=== PATIENT | female | born 1990 | race Caucasian/White ===

== ENCOUNTER 2021-06-10 11:23 | Observation (INO) | payer OTHER, SELFPAY ==
[2021-06-10] VITALS (8 sets, daily range): BP systolic 92–117; BP diastolic 42–71; PULSE 62–123; RESP 14–18; TEMP 36.3–37.6; O2SAT 99–100; BMI 25.0
--- NOTE | ~2021-06-10 | US_ITS ---
EXAMINATION: US OB <= 14 weeks fetus DATE: 06/11/2021 09:20 INDICATION: Threatened spontaneous . First trimester. TECHNIQUE: Real-time transabdominal pelvic ultrasound was performed. COMPARISON: None. FINDINGS: The uterus measures 10.1 x 8.0 x 7.2 cm. There is an intrauterine gestational sac. A yolk sac is iden tified. The crown rump length measures 5 mm, which correlates with an estimated gestational ag e of 6 weeks and 2 day(s) (+/-) 4 day(s). heart motion is identified measuring 115 beats per mi nute (bpm) by M-mode Doppler. There is a 1.5 x 1.4 x 2.4 cm cyst adjacent to the gestational sac, lik sheyla a subchorionic hematoma. The right ovary measures 2.9 x 2.5 x 2.5 cm. The left ovary measures 2.8 x 2.0 x 2.0 cm. There is no free fluid in the pelvis. IMPRESSION: 1. Single living intrauterine gestation with estimated date of delivery of 02/02/2022. 2. 1.5 x 1.4 x 2.4 cm cyst adjacent to the gestational sac, likely a small subchorionic hematoma. Reviewed, dictated and finalized at location B. IMPRESSION: 1. Single living intrauterine gestation with estimated date of delivery of 01/22. 2. 1.5 x 1.4 x 2.4 cm cyst adjacent to the gestational sac, likely a small sub chorionic hematoma.
[2021-06-10 11:59] LABS: Basophils Absolute Auto 0.1 K/mm3 (0.0-0.1); Basophils Percent Auto 0.4 % (0.2-1.2); Eosinophils Absolute Auto 0.1 K/mm3 (0-0.3); Eosinophils Percent Auto 0.5 % (0-4.4); Hematocrit 42.3 % (37.0-47.0); Hemoglobin 14.6 g/dL (12.0-15.0); Immature Granulocyte Absolute 0.04 K/mm3 (0.00-0.031); Immature Granulocyte Percent A 0.4 % (0-0.5); Lymphocytes Absolute Auto 1.38 K/mm3 (0.9-3.2); Lymphocytes Percent Auto 12.1 % (18.3-44.2); Mean Corpuscular HGB Conc 34.5 g/dl (32-36); Mean Corpuscular Hemoglobin 31.2 pg (26-34); Mean Corpuscular Volume 90.4 fl (80-100); Mean Platelet Volume 10.9 fl (7.4-10.4); Monocytes Absolute Auto 0.6 K/mm3 (0.1-0.6); Monocytes Percent Auto 4.8 % (2.6-8.5); Neutrophils Absolute Auto 9.3 K/mm3 (1.3-6.7); Neutrophils Percent Auto 81.8 % (45.5-73.1); Platelet Count Result 215 k/mm3 (150-375); Red Blood Count 4.68 M/mm3 (4.2-5.4); Red Cell Distribution Width 12.7 % (11.5-14.5); White Blood Count 11.4 K/mm3 (4.5-10.0)
[2021-06-10 12:09] LABS: Alanine Aminotransferase 17 U/L (4-35); Alkaline Phosphatase 54 U/L (38-126); Anion Gap 13 mmol/L (8-16); Aspartate Amino Transferase 25 U/L (14-36); Bilirubin,Total 0.8 mg/dL (0.2-1.3); Blood Urea Nitrogen 13 mg/dL (7-17); Calcium 9.9 mg/dL (8.4-10.2); Carbon Dioxide 22 mmol/L (22-30); Chloride 105 mmol/L (98-107); Estimated CRCL calculation 81 ml/min; Estimated Glomerular Filt Rate > 60; Glucose 99 mg/dL (65-110); Lipase 177 U/L (23-300); Potassium 4.2 mmol/L (3.4-5.0); Sodium 140 mmol/L (137-145)
[2021-06-10] MEDS: SODIUM CHLORIDE 0.9% IV 1,000 ML 999 ML IV CONT ×2 (12:09→16:23)
[2021-06-10] MEDS: METOCLOPRAMIDE HCL INJ 10 MG/2 ML VIAL IV PUSH (12:09)
--- NOTE | 2021-06-10 12:15 | PC.NURSE ---
Patient reports she has also had small amount of bleeding. Reports today when she received an ultrasound in OB office everything was good.
--- NOTE | 2021-06-10 12:24 | ED.GENADULT ---
HPI - General Adult General Chief complaint: Nausea/Vomiting/Diarrhea Stated complaint: N/V, 6 WKS Time Seen by Provider: 06/10/21 11:42 Source: patient and RN notes reviewed History of Present Illness HPI narrative: Patient is a 30 y/o female complaining of nausea and vomiting starting 1 week ago. She states that she is vomiting up food and liquid. There is no known alleviating or exacerbating factor. She has no abdominal pain or diarrhea. She states that she is approximately 6 week . She has some mild vaginal bleed. She states that she just came from Dr. Lee's office where she had ultrasound which showed she had some bleeding but positive heart tone. Related Data Home Medications Medication Instructions Recorded Confirmed PNV cmb#95-ferrous fumarate-FA 1 tablet PO DAILY 08/29/19 09/01/19 [] fluoxetine 60 mg PO DAILY 08/29/19 09/01/19 promethazine 06/10/21 Allergies Allergy/AdvReac Type Severity Reaction Status Date / Time No Known Allergies Allergy Unknown Verified 08/13/19 13:37 Review of Systems Constitutional: Constitutional: Denies chills, Denies fever(s), Denies headache(s) and Denies weakness Eyes: Eyes: Denies blurry vision ENT: Denies headache(s) and Denies neck pain Cardiovascular: Cardiovascular: Denies chest pain and Denies dyspnea Respiratory: Respiratory: Denies cough and Denies dyspnea Gastrointestinal: Gastrointestinal: Denies abdominal pain, Denies diarrhea, Reports nausea and Reports vomiting Genitourinary: Genitourinary: Reports abnormal vaginal bleeding, Denies hematuria and Denies dysuria Musculoskeletal: Musculoskeletal: Denies back pain and Denies neck pain Neurologic: Denies headache(s) and Denies weakness [facility] Past Medical History Medical History Anxiety Depression Family History Family History Father Ankylosing spondylitis Mother Asthma Social History Social History Substance use: never Gender identity (if verbalized by the patient): Female Spiritual care concerns: No Exam Const: General: no acute distress and well developed Orientation/consciousness: oriented to person, oriented to place, oriented to time and patient oriented x3 HENMT: Head: normocephalic Ears: external ears normal General nose exam: Normal external nose present Eyes: General: appearance normal, both eyes and all related structures Conjunctivae: conjunctivae normal Neck: Neck: normal visual inspection and full ROM Chest: Chest palpation & inspection: normal inspection of the chest and no tenderness Resp: Effort & Inspection: normal respiratory effort Auscultation: clear to auscultation bilaterally Cardio: Rate: regular rate Rhythm: regular rhythm GI: GI Palp: No abdominal tenderness and Yes Soft to palpation Skin: General skin exam: normal color and turgor normal Neuro: General: oriented to person, oriented to place, oriented to time and patient oriented x3 Cognition (Neuro): normal cognition Extrem: General: normal to inspection, full ROM and no pedal edema Psych: Appearance: grossly normal Mental Status: mental status grossly normal Affect: normal affect Course Consultations Consultation #1: Discussed with Dr. Best, who agrees to admit. Date: 06/10/21 Time: 17:20 Vital Signs Vital signs: Vital Signs Temperature 36.3 C L 06/10/21 11:28 Pulse Rate 75 06/10/21 11:28 Respiratory Rate 16 06/10/21 11:28 Blood Pressure 107/69 06/10/21 11:28 Pulse Oximetry 100 06/10/21 11:28 Temperature 37.5 C 06/10/21 18:36 Pulse Rate 68 06/10/21 18:32 Respiratory Rate 18 06/10/21 18:36 Blood Pressure 117/63 06/10/21 18:32 Pulse Oximetry 100 06/10/21 18:32 Medical Decision Making Vital Signs Vital Signs: Vital Signs Temperature 36.3 C L 06/10/21
[2021-06-10 13:23] LABS: Add Urine Microscopic? YES; Appearance Urine Clear (Clear); Bilirubin Urine Negative (Negative); Blood Urine Negative (Negative); Color Urine Amber (Yellow); Glucose Urine UA Negative (Negative); Ketones Urine 2+ mg/dL (Negative); Leukocyte Esterase Ur Trace LEU/UL (Negative); Mucus Urine Heavy /lpf; Nitrate Urine Negative (Negative); Protein Urine 1+ mg/dL (Negative); RBC Urine 0-2 /hpf (0-2); Squamous Epithelial Cell Urine Many /hpf (Few); WBC Urine 0-3 /hpf
[2021-06-10 13:37] LABS: Specific Grav Ur 1.033 (1.001-1.035)
[2021-06-10] MEDS: PROMETHAZINE HCL 25 MG/ML AMPUL 12.5 MG IM (14:10)
--- NOTE | 2021-06-10 15:45 | PC.NURSE ---
Patient states she is still feeling sick to her stomach. EDP Raul notified.
--- NOTE | 2021-06-10 16:17 | PC.NURSE ---
Patient being PO challenged.
[2021-06-10] MEDS: TRIMETHOBENZAMIDE HCL 200 MG/2 ML VIAL IM (16:24)
--- NOTE | 2021-06-10 17:18 | PC.NURSE ---
Patient failed PO challenge, states she is still vomiting.
--- NOTE | 2021-06-10 18:12 | PC.NURSE ---
Dr. Best called with orders for the hyperemesis pt that just arrived from ED. Reminded MD pt is 7 wks gestation. Orders received.
--- NOTE | 2021-06-10 18:37 | OBADM ---
This patient, Leslee Aquino, admitted to the OB room [facility] Post 112 for observation. Patient/family oriented to hospital policies and general routines including ID bracelet, bed and alarms, visiting hours, pain management, procedures, bathroom and other care routines, personal items, smoking policy, room service/diet, and visiting hours. Patient/Family are encouraged to report perceived risks to care and to ask questions if they do not understand what they are told or what they should do.
[2021-06-10] MEDS: THIAMINE HCL INJ 100 MG, FOLIC ACID INJ 1 MG, MULTIVITAMINS-12 INJ VIAL 1 5 ML, MULTIVI... 125 MG IV CONT (18:50)
[2021-06-11] MEDS: LACTATED RINGERS 1,000 ML 125 ML IV CONT (03:18)
[2021-06-11 03:21] VITALS: BP 87/31; PULSE 70
[2021-06-11 03:23] VITALS: TEMP 37
--- NOTE | 2021-06-11 07:01 | PM.IMHP ---
H&P: HPI History of Present Illness Date/Time: 06/11/21 07:01 Chief Complaint: nausea and vomiting in Narrative: 30 yo at 7w3d gestation who presented to the ED with complaints of retractable nausea and vomiting. She states she has not been able to keep food down this whole . She denies any fevers or chills. She denies any sick contacts. She denies any diarrhea. Review of Systems Cardiovascular: Cardiovascular: Denies chest pain, Denies leg edema, Denies palpitations, Denies dyspnea and Denies dyspnea on exertion Respiratory: Respiratory: Denies cough, Denies dyspnea and Denies dyspnea on exertion Gastrointestinal: Gastrointestinal: Denies abdominal pain, Denies constipation, Denies diarrhea, Denies nausea and Denies vomiting Genitourinary: Genitourinary: Denies hematuria, Denies urinary frequency, Denies dysuria, Denies pelvic pain, Denies urinary incontinence and Denies vaginal discharge Neurologic: Reports system reviewed and no additional complaints, except as documented Psychiatric: Psychiatric: Reports no additional psychiatric complaints Endocrine: Endocrine: Denies palpitations PMFSH Past Medical History Medical History Anxiety Depression Family History Family History Father Ankylosing spondylitis Mother Asthma Social History Social History Substance use: never Gender identity (if verbalized by the patient): Female Spiritual care concerns: No Meds Home Medications and Allergies Home Medications Medication Instructions Recorded Confirmed Type PNV cmb#95-ferrous fumarate-FA 1 tablet PO DAILY 08/29/19 09/01/19 History [] fluoxetine 60 mg PO DAILY 08/29/19 09/01/19 History valacyclovir [Valtrex] 500 mg PO BID #0 tablet 08/29/19 09/01/19 Rx acetaminophen [Mapap 650 mg PO Q6H PRN 7 Days tablet 09/04/19 Rx (acetaminophen)] benzocaine-menthol [Dermoplast 1 spray TOPICAL PRN PRN #1 g 09/04/19 Rx (with menthol)] ibuprofen 600 mg PO Q6H PRN #30 tablet 09/04/19 Rx lanolin [Qhp-Q-Zehghf] 1 applic TOPICAL PRN PRN #1 g 09/04/19 Rx promethazine 06/10/21 History Allergies Allergy/AdvReac Type Severity Reaction Status Date / Time No Known Allergies Allergy Unknown Verified 08/13/19 13:37 Vital Signs Vital Signs - 24 hr 06/10/21 11:28 06/10/21 14:20 06/10/21 14:21 Temperature 36.3 C L Pulse Rate 75 123 H 102 H Respiratory Rate 16 18 Blood Pressure 107/69 113/71 108/67 Pulse Oximetry 100 99 06/10/21 17:21 06/10/21 18:32 06/10/21 18:36 Temperature 37.5 C Pulse Rate 70 68 Respiratory Rate 14 18 Blood Pressure 110/68 117/63 Pulse Oximetry 100 100 06/10/21 22:23 06/10/21 22:45 06/11/21 03:21 Temperature 37.6 C Pulse Rate 62 70 Respiratory Rate Blood Pressure 92/42 L 87/31 L Pulse Oximetry 06/11/21 03:23 Temperature 37.0 C Pulse Rate Respiratory Rate Blood Pressure Pulse Oximetry Exam Const: General: no acute distress Eyes: EOM: EOMs intact bilaterally Neck: Neck: supple Thyroid: thyroid normal Chest: Breast/axilla inspection: normal inspection of the breasts Breast/axilla palpation: normal palpation of the breasts, normal palpation of the axillae and no axillary lymphadenopathy Resp: Effort & Inspection: normal respiratory effort Auscultation: clear to auscultation bilaterally Cardio: Rate: regular rate Rhythm: regular rhythm GI: Inspection: non-distended GI Palp: Yes Soft to palpation, No Tenderness to palpation present (GI) and No Guarding due to palpation present (GI) Auscultation: normal bowel sounds : General: No bladder normal to palpation External Female Exam: normal external appearance Speculum Exam - Vagina: normal vaginal discharge and No vaginal bleeding Speculum Exam - Cervix: nontender Bimanual exam- vagina & uterus
--- NOTE | 2021-06-11 07:04 | PM.OBPNVD ---
OB - PN: Subj Subjective Date/time seen: 06/11/21 07:04 Narrative: Pt doing well this AM. She did not have any episodes of emesis over night. Pt feels nervous to attempt PO. She does feel hungry. OB - PN: Obj Data Labs CBC & Chem 7: 06/10/21 11:48 06/10/21 11:48 Labs: Laboratory Results - last 24 hr 06/10/21 06/10/21 06/10/21 11:48 11:48 13:05 WBC 11.4 H RBC 4.68 Hgb 14.6 D Hct 42.3 MCV 90.4 MCH 31.2 MCHC 34.5 RDW 12.7 Plt Count 215 D MPV 10.9 H Immature Gran % (Auto) 0.4 Neut % (Auto) 81.8 H Lymph % (Auto) 12.1 L [place] % (Auto) 4.8 Eos % (Auto) 0.5 Baso % (Auto) 0.4 Lymph # (Auto) 1.38 [place] # (Auto) 0.6 Eos # (Auto) 0.1 Baso # (Auto) 0.1 Abs Immat Gran (auto) 0.04 H Absolute Neuts (auto) 9.3 H Absolute Nucleated RBC 0.0 Nucleated RBC % 0.0 Sodium 140 Potassium 4.2 Chloride 105 Carbon Dioxide 22 Anion Gap 13 BUN 13 Creatinine 0.80 Estim Creat Clear Calc 81 Estimated GFR > 60 Glucose 99 Calcium 9.9 Total Bilirubin 0.8 AST 25 ALT 17 Alkaline Phosphatase 54 Total Protein 8.0 Albumin 5.0 Lipase 177 Urine Color Cyndi Urine Appearance Clear Urine pH 5.0 Ur Specific [place] 1.033 Urine Protein 1+ H Urine Glucose (UA) Negative Urine Ketones 2+ H Ur Blood (Man) Negative Urine Nitrate Negative Urine Bilirubin Negative Urine Urobilinogen 2.0 H Leukocyte Esterase Rfl Trace H Urine RBC 0-2 Urine WBC 0-3 Ur Squamous Epith Cells Many H Urine Mucus Heavy H OB - PN A/P Assessment and Plan (1) Hyperemesis gravidarum: Code(s): O21.0 - Mild hyperemesis gravidarum Status: Acute Assessment and Plan: Pt reports improvement in symptoms this AM no emesis overnight s/p banana bag and LR for IVF hydration will transition from IV antiemetics to PO will attempt PO challenge today Time Spent With Patient Time: Total time spent is greater than 50% in coordination of care (as documented) at patient's floor/unit and/or counseling patient: Review of Systems Review of Systems: All systems reviewed & are unremarkable except as noted in HPI and below Constitutional: Constitutional: Reports as per HPI Exam Const: General: cooperative, healthy appearing, comfortable and no acute distress Resp: Effort & Inspection: normal respiratory effort and able to speak in complete sentences Cardio: Rate: regular rate Rhythm: regular rhythm GI: Inspection: normal to inspection GI Palp: No abdominal tenderness Skin: General skin exam: normal color and no rashes or lesions noted Neuro: General: patient oriented x3 Extrem: General: normal to inspection Psych: Appearance: grossly normal Mental Status: mental status grossly normal Speech and movement: Normal speech and movement present
[2021-06-11] MEDS: ONDANSETRON INJ 4 MG/2 ML VIAL IV PUSH (07:05)
== END 2021-06-11 10:10 | disposition home or self-care (01) ==
LOC: ANHED 11:50 → ANHOBPP 18:55
PROVIDERS: Admitting Provider Student in an Organized Health Care Education/Training Program; Emergency Provider Emergency Medicine; Visit Provider Obstetrics & Gynecology
DX: O21.0 Mild hyperemesis gravidarum (principal); Z3A.01 Less than 8 weeks gestation of pregnancy
CPT/HCPCS: 36415; 76801; 80053; 81001; 81025; 83690; 85025; 96361; 96372; 96374; 96375; 99285; G0378; G0379; J2405; J2550; J2765; J3250; J3411; J3475; J7030; J7120; J7121

== ENCOUNTER 2022-04-07 08:27 | Emergency (ER) | payer OTHER, SELFPAY ==
[2022-04-07 08:35] VITALS: BP 128/85; PULSE 85; RESP 16; TEMP 37.2; O2SAT 100
--- NOTE | 2022-04-07 08:35 | ED.URI ---
HPI - URI/Sore Throat General Chief Complaint: Upper Respiratory Infection Stated Complaint: sore throat/cough Time Seen by Provider: 04/07/22 08:39 Source: patient Mode of arrival: ambulatory Limitations: no limitations History of Present Illness HPI Narrative: 31-year-old female presented for complaint of sore throat and cough for 4 days. Endorses sinus congestion postnasal drainage. She denies headache, nausea, vomiting, or shortness of breath. She has been taking cough drops for symptoms. She denies sick contacts. She is not vaccinated for COVID or flu. Related Data Allergies Allergy/AdvReac Type Severity Reaction Status Date / Time No Known Allergies Allergy Unknown Verified 04/07/22 08:32 Review of Systems Review of Systems: CONSTITUTIONAL: Denies body aches, fever, chills, or sweats. EYES: Denies visual changes, redness, or discharge. ENT: reports rhinorrhea, congestion, sore throat CARDIOVASCULAR: Denies chest pain, palpitations, or edema. RESPIRATORY: Denies dyspnea. SKIN: Denies rash, itching, or wounds. NEUROLOGIC: Denies headache All systems reviewed & are unremarkable except as noted in HPI and below PMFSH Past Medical History Medical History Anxiety Depression Family History Family History Father Ankylosing spondylitis Mother Asthma Social History Social History Substance use: never Gender identity (if verbalized by the patient): Female Spiritual care concerns: No Comments At time of signature, I have reviewed and agree with nursing past medical, surgical, social and family history unless otherwise noted. Please see nursing chart for further information. There is no relevant family history pertinent to the presenting complaint Exam Narrative: GENERAL: Well-appearing, well-nourished, and in no acute distress. EYES: EOMI. No redness or drainage. Conjunctivae normal. ENT: Mucous membranes pink and moist. No rhinorrhea. TMs normal bilaterally. Throat erythematous, left tonsil with white patch. Uvula midline. CHEST: No respiratory distress. Clear to auscultation. HEART: Regular rate and rhythm. No murmur appreciated. Normal peripheral pulses. SKIN: Warm, dry, no rash. Capillary refill normal. Normal skin turgor. NEURO: No focal deficits. Alert and oriented x3. Gait steady. PSYCH: Normal affect. Course Course Emergency Course: Patient is aware of diagnosis, understands and agrees to treatment plan. Anticipatory guidance given. Patient agrees to follow-up as directed and is aware of reasons to seek care at the emergency department. Portions of this record may have been created with voice recognition software Level of Care: Express Care Visit Vital Signs Vital signs: Vital Signs Temperature 98.9 F 04/07/22 08:35 Pulse Rate 85 04/07/22 08:35 Respiratory Rate 16 04/07/22 08:35 Blood Pressure 128/85 04/07/22 08:35 Pulse Oximetry 100 04/07/22 08:35 Oxygen Delivery Room Air 04/07/22 08:35 Temperature 98.9 F 04/07/22 08:43 Pulse Rate 85 04/07/22 08:43 Respiratory Rate 16 04/07/22 08:43 Blood Pressure 128/85 04/07/22 08:43 Pulse Oximetry 100 04/07/22 08:43 Oxygen Delivery Room Air 04/07/22 08:43 MDM - URI/Sore Throat MDM Narrative Medical decision making narrative: strep negative, reviewed supportive treatments with pt. discussed tonsil stones. She is in stable condition and appropriate for outpatient treatment and follow-up. Differential Diagnosis Differential diagnosis: Likely upper respiratory infection, sinusitis, viral infection and pharyngitis Lab Data Labs: Strep Screen Presumptive Negative *(Reference Range: Negative)* Discharge Plan Discharge Clinical Impression: Pharyngitis Qual
[2022-04-07 08:43] VITALS: BP 128/85; PULSE 85; RESP 16; TEMP 37.2; O2SAT 100
== END 2022-04-07 08:59 | disposition home or self-care (01) ==
PROVIDERS: Emergency Provider Nurse Practitioner Family
DX: J02.9 Acute pharyngitis, unspecified (principal); J30.9 Allergic rhinitis, unspecified; F32.9 Major depressive disorder, single episode, unspecified
CPT/HCPCS: 87081; 87880; 99213; G0463

== ENCOUNTER 2022-06-16 00:43 | Day surgery (SDC) | payer OTHER, SELFPAY ==
[2022-06-14 14:59] VITALS: BMI 26.6
--- NOTE | 2022-06-14 15:05 | PC.NURSE ---
Report to the Outpatient Waiting Room, entrance under the green pavilion located off [facility], at time 1130 on date 06/16/22. OR Time: 1330. - You and your visitor will be asked to self-screen and do not enter if you have any COVID symptoms. - Only one visitor and NO children visitors are allowed at this time. - The patient visitor is requested to leave or wait in car when not with patient due to restrictions. - A mask is required within the hospital. Patients may have clear liquids (water, carbonated beverages, clear teas, apple juice) until 3 hours prior to surgery with a maximum of 20 ounces. - No food from midnight until time of surgery Take the following medications with a SIP of water the morning of surgery: N/A Medications to discontinue per physician: N/A Date to take last dose: N/A Please no make-up, nail pashto, hairspray, perfume, deodorant, or body powder the day of surgery. No jewelry (including any body piercings) or valuables the day of surgery, leave them at home. Please take a shower or bath the night before, or the morning of, surgery with an antibacterial soap. Wear comfortable, loose fitting clothing. - Jewelry must be removed prior to entering the operating room. Rings and piercings that are not removed may be cut off. - The hospital will not accept responsibility for valuables. - Please leave all valuables, including medications, at home the day of surgery. If you are going home after surgery, a licensed cdl flatbed truck driver must drive you home. - NO public transportation without another adult. - We recommend that an adult stay with you for 24 hours following discharge. - We also recommend that you do not drive, make important decision, drink alcoholic beverages, or take any drugs that were not prescribed by your health care provider for at least 24 hours after your discharge time. Follow any additional instructions given to you from your surgeon. If you or anyone in your household have experienced Covid symptoms in the past week, please notify your surgeon or the nurse liaison at the phone number below for possible testing. Telephone instructions given to PT - JACQUE BRUNER and asked if any additional questions and then verbalized understanding. Patient advised to call surgeon office or pre surgery nurse liaison [phone] if any additional questions.
[2022-06-16 11:07] VITALS: BP 121/76; PULSE 79; RESP 20; TEMP 36.7; O2SAT 100
[2022-06-16] MEDS: ACETAMINOPHEN 500 MG TABLET 1000 MG PO (11:25)
[2022-06-16] MEDS: LACTATED RINGERS 1,000 ML 30 ML IV CONT (11:35)
--- NOTE | 2022-06-16 12:16 | PM.IMHP ---
H&P: HPI History of Present Illness Date/Time: 06/16/22 12:16 Chief Complaint: Abnormal pap Narrative: 31 y/o with a Pap read as ASC-US with HPV Genotype 16. 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 She has Nexplanon for contraception. Review of Systems Review of Systems: All systems reviewed & are unremarkable except as noted in HPI and below PMFSH Past Medical History Medical History Anxiety Depression Family History Family History Father Ankylosing spondylitis Mother Asthma Social History Social History Smoking packs per day: 0.5 Smoking cigarettes per day: 10.0 Years smoked: 4 Smoking pack-years: 2.00 Smoking status: Former smoker Tobacco type: cigarettes Smoking end date: 10/24/15 Alcohol intake: never Substance use: never Substance use type: does not use Living arrangements: with family Additional living arrangements comments: CHILDREN Gender identity (if verbalized by the patient): Female Spiritual care concerns: No Meds Home Medications and Allergies Home Medications Medication Instructions Recorded Confirmed Type No Home Medications 06/14/22 06/16/22 History Allergies Allergy/AdvReac Type Severity Reaction Status Date / Time No Known Allergies Allergy Unknown Verified 06/16/22 11:24 Vital Signs Vital Signs - 24 hr 06/16/22 11:07 Temperature 36.7 C Pulse Rate 79 Respiratory Rate 20 Blood Pressure 121/76 Pulse Oximetry 100 Oxygen Delivery Room Air Exam Const: Orientation/consciousness: patient oriented x3 Other: Well-developed, well-nourished female in no acute distress. Neck: Thyroid: thyroid normal Lymphatic: no lymphadenopathy noted (in neck, axilla or inguinal nodes) Resp: Effort & Inspection: normal respiratory effort Auscultation: clear to auscultation bilaterally Cardio: Rate: regular rate Rhythm: regular rhythm Heart sounds: S1 normal heart sound present and S2 normal heart sound present GI: Other: ABD: Soft, nontender, nondistended. No guarding or rebound tenderness. No hepatosplenomegaly. : General: Yes no CVA tenderness Other: External genitalia: normal female hair distribution, without lesion. Urethral meatus: no lesion, non prolapsed. Bladder: no mass, nontender Vagina: well-estrogenized, without lesion or discharge. No cystocele or rectocele. Cervix: no lesion or discharge. Uterus: small, anteverted, freely mobile, nontender Adnexa: no mass or tenderness. Anus/perineum: no lesions, nontender Back/Spine/Pelvis: Back: no CVA tenderness Skin: General skin exam: normal color and no rashes or lesions noted Neuro: General: patient oriented x3 Extrem: Other: Extremities: nontender with no edema Psych: Mental Status: mental status grossly normal Affect: normal affect Assessment and Plan Assessment and plan (1) DANIEL II (cervical intraepithelial neoplasia II): Code(s): N87.1 - Moderate cervical dysplasia Status: Acute Assessment and Plan: A: CIN2. P: Offered LEEP. She understands risks of surgery to include risks of anesthesia, risks of pain, infection, bleeding, blood products, thromboembolic phenomena and damage to adjacent structures such as bowel, bladder, ureters, blood vessels and nerves. She understands all these risks and elects to proceed with surgery.
--- NOTE | 2022-06-16 12:19 | WPDHPUPDATE1 ---
History and Physical Update Update Date/Time: 06/16/22 12:19 History and Physical has been reviewed, including an updated exam of the patient. There are NO changes in the patient's condition. Risks, benefits, and alternatives have been discussed and questions answered. Patient agrees to proceed with procedure.
--- NOTE | 2022-06-16 13:11 | P.PNAN_ITS ---
Anes - Initial Pre Proc Eval Procedure: Operation Date: 06/16/22 13:30 Proposed Procedures p Loop Electrical Excision Procedure - Chaz Lee MD Date/Time: 06/16/22 13:11 Surgeon: Chaz Lee MD Pre Op Diagnosis: HGSIL, CIN2 Patient Data Age: 31 Gender: F Height: 1.65 m Weight: 62.3 kg Last Vital Signs Temp 98.1 F 06/16/22 11:07 Pulse 79 06/16/22 11:07 Resp 20 06/16/22 11:07 BP 121/76 06/16/22 11:07 Pulse Ox 100 06/16/22 11:07 O2 Del Method Room Air 06/16/22 11:07 Allergies Allergy/AdvReac Type Severity Reaction Status Date / Time No Known Allergies Allergy Unknown Verified 06/16/22 11:24 Home Medications Medication Instructions Recorded Confirmed Type No Home Medications 06/14/22 06/16/22 History Patient hx anesthesia problems: none Family hx anesthesia problems: none Results Review: All pre-operative results and documents have been reviewed as part of the pre- operative evaluation. [facility] Past Medical History Medical History Anxiety Depression Family History Family History Father Ankylosing spondylitis Mother Asthma Social History Social History Smoking packs per day: 0.5 Smoking cigarettes per day: 10.0 Years smoked: 4 Smoking pack-years: 2.00 Smoking status: Former smoker Tobacco type: cigarettes Smoking end date: 10/24/15 Alcohol intake: never Substance use: never Substance use type: does not use Living arrangements: with family Additional living arrangements comments: CHILDREN Gender identity (if verbalized by the patient): Female Spiritual care concerns: No Anes - Eval Final PreProcedure Day of Procedure 06/16/22 13:11 Patient weight: normal Heart: regular rate and rhythm Lungs: clear to auscultation Airway: Mallampati scale class II Neurological: alert and oriented Last oral intake: >/= 8 hours ASA classification: II Emergent: no Anesthetic plan: proceed Anesthesia type and monitoring: general GIVS and standard monitoring Results Review: All pre-operative results and documents have been reviewed as part of the pre- operative evaluation. Informed Consent: The patient's anesthetic plan and its attendant risks and benefits were discussed with the patient/family/POA. Questions were solicited and answers provided to the satisfaction of the patient/family/POA.
[2022-06-16] MEDS: LIDOCAINE HCL 1% PF 30 ML VIAL 10 ML INFILTRATE (13:38)
[2022-06-16] MEDS: FERRIC SUBSULFATE 8 ML SOLUTION WITH APPLICATOR TOPICAL (13:44)
--- NOTE | 2022-06-16 13:57 | P.OP_ITS ---
Procedure Note - Detailed Date of Procedure 06/16/22 Pre-op Diagnosis CIN2 Post-op Diagnosis Same Procedure Performed LEEP conization of cervix Surgeon Chaz Lee MD Anesthesia MAC and Local (Paracervical block with 1% lidocaine) Findings Acetowhite epithelium on anterior lip of cervix Description of Procedure The patient was taken to the operating room where she was prepared and draped in the usual sterile fashion in the dorsal lithotomy position. The bladder was drained with a red rubber catheter. A sterile speculum was placed into the vagina. Ten mL of 1% lidocaine was administered in a paracervical block. Acetic acid was applied to the cervix. LEEP biopsies were then collected, first from the posterior lip of the cervix, then the anterior lip, then the top of the hat. The roller ball was used to attain excellent hemostasis. Monsel's so lution was applied. Hemostasis was excellent. Sponge, lap, needle and instrument counts were correct. The patient was awakened and taken to the recovery room in stable condition. I was present and scrubbed through the entire procedure. Estimated Blood Loss 5 Drains No Packing No Pathology Yes (Anterior lip, posterior lip, and top of hat biopsies of cervix) Complications None Condition Stable Disposition PACU
[2022-06-16 13:59] VITALS: BP 84/47; PULSE 57; RESP 12
[2022-06-16 14:25] VITALS: BP 98/55; PULSE 68; RESP 20
[2022-06-16 14:55] VITALS: BP 105/68; PULSE 70; RESP 20
[2022-06-16 15:15] VITALS: BP 110/75; PULSE 76; RESP 20
== END 2022-06-16 15:24 | disposition home or self-care (01) ==
PROVIDERS: Visit Provider Obstetrics & Gynecology
PROC: 0UBC7ZZ Excision of Cervix, Via Natural or Artificial Opening (ICD-10-PCS; CPT 57522; principal; 2022-06-16 13:30)
DX: N87.1 Moderate cervical dysplasia (principal); Z87.891 Personal history of nicotine dependence
CPT/HCPCS: 57522; 88307; 88342; A9270; J2001; J2250; J2405; J2704; J3010; J7120

== ENCOUNTER 2022-06-30 19:01 | Emergency (ER) | payer OTHER, SELFPAY ==
[2022-06-30] VITALS (27 sets, daily range): BP systolic 101–131; BP diastolic 56–94; PULSE 90–127; RESP 16; TEMP 37.2; O2SAT 90–100
--- NOTE | ~2022-06-30 | CT_ITS ---
EXAMINATION: CT abdomen pelvis w con DATE: 06/30/2022 22:11 INDICATION: lower abdominal pain with recent sulphate tester procedure TECHNIQUE: Computed tomography (CT) of the abdomen and pelvis was performed with 100 mL Omnipaque-350 intravenous contrast. Automated exposure control and iterative reconstruction technique were employe d. The dose-length product was 247.27 mGy-cm. COMPARISON: None. FINDINGS: Lower thorax: Unremarkable Liver: Enlarged. Biliary/Gallbladder: Gallbladder is normal. No bile duct dilation. Pancreas: No mass or duct dilation. Spleen: Normal. Adrenals:No mass. Kidneys: No mass, stone, or hydronephrosis. GI tract: No small or large bowel dilation. Normal appendix. Mesentery/Peritoneum: No ascites, mass, or free air. Retroperitoneum: No mass. Pelvis: Pelvic organs are within normal limits. Soft Tissues: Soft tissues and body wall unremarkable. Bones: No acute osseous finding. IMPRESSION: No acute abdominal or pelvic process detected. Mild hepatomegaly. Reviewed, dictated and finalized at location K.
[2022-06-30 19:39] LABS: Basophils Absolute Auto 0.1 K/mm3 (0.0-0.1); Basophils Percent Auto 0.6 % (0.2-1.2); Eosinophils Absolute Auto 0.1 K/mm3 (0-0.3); Eosinophils Percent Auto 1.2 % (0-4.4); Hematocrit 36.8 % (37.0-47.0); Hemoglobin 12.8 g/dL (12.0-15.0); Immature Granulocyte Absolute 0.06 K/mm3 (0.00-0.031); Immature Granulocyte Percent A 0.6 % (0-0.5); Lymphocytes Absolute Auto 2.74 K/mm3 (0.9-3.2); Lymphocytes Percent Auto 25.8 % (18.3-44.2); Mean Corpuscular HGB Conc 34.8 g/dl (32-36); Mean Corpuscular Hemoglobin 30.7 pg (26-34); Mean Corpuscular Volume 88.2 fl (80-100); Mean Platelet Volume 10.8 fl (7.4-10.4); Monocytes Absolute Auto 0.5 K/mm3 (0.1-0.6); Neutrophils Absolute Auto 7.1 K/mm3 (1.3-6.7); Neutrophils Percent Auto 66.8 % (45.5-73.1); Platelet Count Result 302 k/mm3 (150-375); Red Blood Count 4.17 M/mm3 (4.2-5.4); Red Cell Distribution Width 12.2 % (11.5-14.5); White Blood Count 10.6 K/mm3 (4.5-10.0)
[2022-06-30 19:54] LABS: Alanine Aminotransferase 13 U/L (6-35); Albumin Level 4.7 g/dL (3.5-5.1); Alkaline Phosphatase 55 U/L (38-126); Anion Gap 19 mmol/L (8-16); Aspartate Amino Transferase 23 U/L (14-36); Bilirubin,Total 0.3 mg/dL (0.2-1.3); Blood Urea Nitrogen 9 mg/dL (7-17); Carbon Dioxide 18 mmol/L (22-30); Chloride 107 mmol/L (98-107); Estimated Glomerular Filt Rate > 60; Glucose 120 mg/dL (65-110); Potassium 3.7 mmol/L (3.4-5.0); Sodium 144 mmol/L (137-145)
--- NOTE | 2022-06-30 20:27 | ED.FEMALEGU ---
HPI - Female Genitourinary General Chief complaint: Vaginal Bleeding Stated complaint: Passing clots the size of my fists Time Seen by Provider: 06/30/22 20:08 History of Present Illness HPI Narrative: Patient is a 31-year-old female presenting with vaginal bleeding. Patient states that she had a LEEP procedure approximately 3 weeks ago. States that she had a lot of bleeding after the procedure. 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 Patient states that they put a medicine on her cervix to help with the bleeding. She states that the speculum exam at that time was extremely painful which was new for her. Since that time, her bleeding improved until about 3 to 4 days ago when it returned. Today, the bleeding has worsened and patient states she has passed several fist sized clots. States that she has cramping in her lower back as well as vaginal pain. She denies fevers, chest pain, shortness of breath, nausea or vomiting, diarrhea, constipation, dysuria. Related Data Allergies Allergy/AdvReac Type Severity Reaction Status Date / Time No Known Allergies Allergy Unknown Verified 06/30/22 19:25 Review of Systems Review of Systems: All systems reviewed & are unremarkable except as noted in HPI and below PMFSH Past Medical History Medical History Anxiety Depression Family History Family History Father Ankylosing spondylitis Mother Asthma Social History Social History Smoking packs per day: 0.5 Smoking cigarettes per day: 10.0 Years smoked: 4 Smoking pack-years: 2.00 Smoking status: Former smoker Tobacco type: cigarettes Smoking end date: 10/24/15 Alcohol intake: never Substance use: never Substance use type: does not use Additional living arrangements comments: CHILDREN Gender identity (if verbalized by the patient): Female Spiritual care concerns: No Exam Narrative: GENERAL: Well-appearing, well-nourished, and in no acute distress. HEAD: Normocephalic, atraumatic. EYES: PERRLA and EOMI. ENT: Nares clear, no rhinorrhea or epistaxis. Mucous membranes moist. NECK: Supple. CHEST: Clear to auscultation. No respiratory distress. HEART: Regular rate and rhythm. No murmur heard. Normal peripheral pulses. ABDOMEN: Soft, nontender, nondistended, normal active bowel sounds. : Blood in the vaginal vault, no clots noted, small amount of blood from the cervical os, does not appear to be any active bleeding from the biopsy sites EXTREMITIES: Normal range of motion. No edema. SKIN: Warm, dry, no rash. NEURO: No focal deficits. Alert and oriented x3. PSYCH: Normal mood and affect. Course Course Emergency Course: Patient is a 31-year-old female with history as above presenting with vaginal bleeding. Patient is tachycardic, otherwise vitals are within normal limits. Patient is nontoxic and in no acute distress. Exam is remarkable for the above. CBC is stable. BMP is unremarkable. CT abdomen pelvis shows no acute abnormalities. I spoke with Dr. Lee with [employer] who recommends 1 g of TXA for symptomatic control. Will plan for the patient to follow-up closely in clinic. Discussed this with the patient and she is agreeable with this plan. Strict return precautions were given. Patient discharged in stable condition. Consultations Consultation #1: Dr. 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 Recommends 1g TXA for symptomatic control. Agrees with CT scan, will plan for close f/u if CT returns without abnormalities. Date: 06/30/22 Vital Signs Vital signs: Vital Signs Temperature 99.0 F 06/30/22 19:11 Pulse Rate 127 H 06/30/22 19:11 Respiratory Rate 16 06/30/22 19:11 Blood Pressure 108/76 06/30/22 19:11 Pulse Oximetry 100 06/30/22 19:11 Temperature 99.0
[2022-06-30] MEDS: SODIUM CHLORIDE 0.9% IV 1,000 ML 999 ML IV CONT (20:37)
[2022-06-30] MEDS: fentaNYL CITRATE INJ (*CRX) 100 MCG/2 ML VIAL 50 MCG IV PUSH (20:37)
[2022-06-30] MEDS: KETOROLAC 15 MG/ML VIAL (*BKC) IV PUSH (20:40)
[2022-06-30] MEDS: TRANEXAMIC ACID 1,000 MG/10 ML AMPUL 1000 MG IV PUSH (22:51)
== END 2022-06-30 23:36 | disposition home or self-care (01) ==
PROVIDERS: Emergency Medicine; Emergency Provider Emergency Medicine
DX: N93.9 Abnormal uterine and vaginal bleeding, unspecified (principal); Z98.890 Other specified postprocedural states; Z87.891 Personal history of nicotine dependence
CPT/HCPCS: 36415; 74177; 80053; 81025; 85025; 86850; 86900; 86901; 96361; 96374; 96375; 99284; J1885; J3010; J7030; Q9967

== ENCOUNTER 2023-08-01 17:40 | Emergency (ER) | payer OTHER, SELFPAY ==
--- NOTE | ~2023-08-01 | US_ITS ---
EXAMINATION: US pelvic complete w TV DATE: 08/01/2023 19:40 INDICATION: vaginal bleeding TECHNIQUE: Multiple transabdominal and endovaginal sonographic images of the pelvis were obtained. COMPARISON: None. FINDINGS: Uterus: 8.1 x 4.2 x 4.7 cm. Heterogeneous uterine parenchyma and endometrial margins. Echogenic mobil e material within the endometrial canal, likely hemorrhage. Endometrial complex measures 4 mm. Right Ovary: 4.9 x 2.4 x 3.6 cm. Vascular flow is present. 2.9 cm simple cyst. Left Ovary: 3.4 x 2.0 x 2.8 cm. Vascular flow is present. There is no free fluid in the pelvis. IMPRESSION: Heterogeneous uterine parenchyma as can be seen with adenomyosis. Likely hemorrhage within the endometrial canal. 2.9 cm simple right ovarian cyst. Reviewed, dictated and finalized at location K.
[2023-08-01 17:42] VITALS: BP 132/71; PULSE 88; RESP 16; TEMP 36.7; O2SAT 100
--- NOTE | 2023-08-01 18:32 | ED.FEMALEGU ---
HPI - Female Genitourinary General Chief complaint: Vaginal Bleeding Stated complaint: vaginal bleeding Time Seen by Provider: 08/01/23 18:32 History of Present Illness HPI Narrative: Patient is a 32-year-old female here with dysuria and vaginal bleeding. She states that she has had some white / clear vaginal discharge for about the last 1 month. About 1 week ago she started having some light vaginal spotting which required no tampons or pads. Last night she began having heavy vaginal bleeding. She notes that today she is using both tampons and pads and has filled 10 pads throughout the day today. She endorses some lower abdominal cramping. She is additionally complaining of some dysuria. She notes that it is painful on the initiation of urination and this seemed to begin yesterday as well. She denies prior history of UTI. She states that she most recently had 1 sexual partner, no current partners. No regular condom use with this partner. She is unsure if she could have been exposed to STDs. She does note that she uses control, has Nexplanon which has been implanted for the last 2 and half years. She does note some associated fatigue and subjective fever and chills. These both began in the last 24 hours. Related Data Allergies Allergy/AdvReac Type Severity Reaction Status Date / Time No Known Allergies Allergy Unknown Verified 06/30/22 19:25 Review of Systems Review of Systems: All systems reviewed & are unremarkable except as noted in HPI and below PMFSH Past Medical History Medical History Anxiety Depression Family History Family History Father Ankylosing spondylitis Mother Asthma Social History Social History Smoking packs per day: 0.5 Smoking cigarettes per day: 10.0 Years smoked: 4 Smoking pack-years: 2.00 Smoking status: Former smoker Tobacco type: cigarettes Smoking end date: 10/24/15 Alcohol intake: never Substance use: never Substance use type: does not use Living arrangements: with family Additional living arrangements comments: CHILDREN Gender identity (if verbalized by the patient): Female Spiritual care concerns: No Exam Narrative: GENERAL: Well-appearing, well-nourished, and in no acute distress. HEAD: Normocephalic, atraumatic. EYES: PERRLA and EOMI. ENT: Nares clear. Mucous membranes moist. NECK: Supple. CHEST: Clear to auscultation. No respiratory distress. HEART: Regular rate and rhythm. Normal peripheral pulses. ABDOMEN: Soft, nontender, nondistended. No CVA tenderness. 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 EXTREMITIES: Normal range of motion. No edema. SKIN: Warm, dry, no rash. NEURO: No focal deficits. Alert and oriented x3. PSYCH: Normal mood and affect. Course Course Emergency Course: Chart review performed. Patient here with vaginal bleeding x1 day. Triage vitals within normal limits. Lab work reviewed. CBC within normal limits. UA shows 51-100 RBC, 11-20 WBC, no bacteria. Bedside negative. Awaiting pelvic US. Patient has been seen and evaluated, in no acute distress. Concern for dysfunctional uterine bleeding, test is negative so unlikely to be miscarriage or ectopic . Differentials also include UTI, STI. Will do pelvic exam. Ultrasound shows heterogenous uterine parenchyma, echogenic material consistent with hemorrhage. Will do pelvic exam. Moderate blood in vaginal fault which clears easily with martinez swab, difficult to visualize the cervix. Swabs obtained. Patient will be started on keflex for possible UTI given UA and symptoms. Re-evaluated patient, continues to feel well. I did discuss waiting for vaginal swabs,
[2023-08-01 18:34] LABS: Appearance Urine Clear (Clear); Basophils Percent Auto 0.4 % (0.2-1.2); Bilirubin Urine Negative (Negative); Blood Urine 3+ (Negative); Color Urine Yellow (Yellow); Eosinophils Absolute Auto 0.3 K/mm3 (0-0.3); Eosinophils Percent Auto 4.4 % (0-4.4); Glucose Urine UA Negative (Negative); Hematocrit 36.6 % (37.0-47.0); Hemoglobin 12.5 g/dL (12.0-15.0); Immature Granulocyte Absolute 0.02 K/mm3 (0.00-0.031); Immature Granulocyte Percent A 0.3 % (0-0.5); Ketones Urine Trace mg/dL (Negative); Leukocyte Esterase Ur Negative LEU/UL (Negative); Lymphocytes Absolute Auto 1.72 K/mm3 (0.9-3.2); Lymphocytes Percent Auto 24.4 % (18.3-44.2); Mean Corpuscular HGB Conc 34.2 g/dl (32-36); Mean Corpuscular Hemoglobin 31.1 pg (26-34); Mean Platelet Volume 11.8 fl (7.4-10.4); Monocytes Absolute Auto 0.5 K/mm3 (0.1-0.6); Monocytes Percent Auto 6.5 % (2.6-8.5); Neutrophils Absolute Auto 4.5 K/mm3 (1.3-6.7); Nitrate Urine Negative (Negative); Platelet Count Result 177 k/mm3 (150-375); Protein Urine Trace mg/dL (Negative); Red Blood Count 4.02 M/mm3 (4.2-5.4); Specific Grav Ur 1.025 (1.001-1.035); Urobilinogen Urine 0.2 mg/dL (<2.0); White Blood Count 7.1 K/mm3 (4.5-10.0)
[2023-08-01 18:54] LABS: Bacteria Urine None Seen /hpf; Non Pathogenic Casts 0-2; RBC Urine 51-100 /hpf (0-2); Squamous Epithelial Cell Urine None seen /hpf (Few)
[2023-08-01 19:06] LABS: Add Urine Microscopic? YES
[2023-08-01 20:06] VITALS: BP 119/75; PULSE 67; RESP 18; O2SAT 100
[2023-08-01] MEDS: CEPHALEXIN 500 MG CAPSULE PO (21:43)
[2023-08-01 21:45] VITALS: BP 112/60; PULSE 66; RESP 18; O2SAT 100
[2023-08-01 22:33] LABS: Trichomonas Vag PCR NOT DETECTED (NOT DETECTE)
[2023-08-01 22:40] VITALS: BP 104/64; PULSE 68; RESP 20; O2SAT 100
[2023-08-01 22:56] LABS: Chlamydia trachomatis NOT DETECTED (NOT DETECTE); Neisseria gonorrhoeae PCR NOT DETECTED (NOT DETECTE)
== END 2023-08-01 22:40 | disposition home or self-care (01) ==
PROVIDERS: Emergency Medicine; Emergency Provider Student in an Organized Health Care Education/Training Program
DX: N39.0 Urinary tract infection, site not specified (principal); N93.8 Other specified abnormal uterine and vaginal bleeding; F41.9 Anxiety disorder, unspecified; F32.A Depression, unspecified
CPT/HCPCS: 36415; 76830; 76856; 81001; 81025; 85025; 87086; 87088; 87491; 87591; 87661; 99284; A9270

== ENCOUNTER 2023-10-02 12:35 | Emergency (ER) | payer OTHER, SELFPAY ==
--- NOTE | ~2023-10-02 | XR_ITS ---
EXAMINATION: XR foot LT min 3V DATE: 10/02/2023 13:00 INDICATION: Foot pain TECHNIQUE: Dorsoplantar, lateral, and 2 oblique views of the left foot were obtained. COMPARISON: None. FINDINGS: No fracture, dislocation, or subluxation. The bones, soft tissues, and joint spaces are nor mal. IMPRESSION: 1. No acute osseous abnormality. Reviewed, dictated and finalized at location F. ESPONDENCE COORDINATOR
--- NOTE | ~2023-10-02 | XR_ITS ---
EXAMINATION: XR ankle LT min 3V DATE: 10/02/2023 13:00 INDICATION: Left ankle pain TECHNIQUE: Anteroposterior, lateral, mortise, and additional oblique view of the ankle were obtained. COMPARISON: None. FINDINGS: Bone alignment is normal. There is no fracture. The soft tissues are unremarkable. IMPRESSION: 1. No acute osseous abnormality. Reviewed, dictated and finalized at location F. T LINE SUPERVISOR
[2023-10-02 12:48] VITALS: BP 116/69; PULSE 76; RESP 16; TEMP 36.8; O2SAT 100
--- NOTE | 2023-10-02 14:02 | ED.GENADULT ---
HPI - General Adult General Chief complaint: Extremity Injury, Lower Stated complaint: Left Ankle Pain Source: patient Mode of arrival: ambulatory Limitations: no limitations History of Present Illness HPI narrative: Patient presents for evaluation of left ankle /foot pain for the past three days. Her pain started after tripping over one of her children's toys. She rates her pain as 6/10 in severity, without descriptive quality. She has numbness and tingling which are new as of today. She has not taken any medication to assist with her symptoms. Movement and weightbearing make her pain worse. Related Data Home Medications Medication Instructions Recorded Confirmed No Home Medications 10/02/23 10/02/23 Allergies Allergy/AdvReac Type Severity Reaction Status Date / Time No Known Allergies Allergy Unknown Verified 10/02/23 12:42 Review of Systems Review of Systems: CONSTITUTIONAL: Denies fever, chills, or sweats. EYES: Denies visual changes, redness, or discharge. ENT: Denies rhinorrhea, congestion, sore throat, or otalgia. CARDIOVASCULAR: Denies chest pain, palpitations, or edema. RESPIRATORY: Denies cough or dyspnea. GASTROINTESTINAL: Denies abdominal pain, nausea, vomiting, or diarrhea. GENITOURINARY: Denies dysuria or hematuria. SKIN: Denies rash or itching. MUSCULOSKELETAL: reports left ankle / foot pain. NEUROLOGIC: Denies headache, numbness, dizziness, or weakness. PSYCHIATRIC: Denies anxiety or depression. [facility] Past Medical History Medical History Anxiety Depression Surgical History Surgical History No pertinent past surgical history Family History Family History Father Ankylosing spondylitis Mother Asthma Social History Social History Smoking packs per day: 0.5 Smoking cigarettes per day: 10.0 Years smoked: 4 Smoking pack-years: 2.00 Smoking status: Former smoker Tobacco type: cigarettes Smoking end date: 10/24/15 Alcohol intake: never Substance use: never Substance use type: does not use Living arrangements: with family Additional living arrangements comments: CHILDREN Gender identity (if verbalized by the patient): Female Spiritual care concerns: No Exam Narrative: GENERAL: Well-appearing, well-nourished, and in no acute distress. HEAD: Normocephalic, atraumatic. EYES: PERRLA and EOMI. ENT: Nares clear, no rhinorrhea or epistaxis. Mucous membranes moist. Oropharynx without tonsillar hypertrophy exudate or other lesions. Bilateral TMs pearly gilman nonbulging NECK: Supple. No adenopathy or masses. No carotid bruits or JVD CHEST: Clear to auscultation. No respiratory distress. No wheezes rales or rhonchi HEART: Regular rate and rhythm. No murmur heard. Normal peripheral pulses. ABDOMEN: Soft, nontender, nondistended, normal active bowel sounds. EXTREMITIES: Normal range of motion. No edema. SKIN: There is tenderness circumferentially in the left ankle and dorsal aspect of the proximal left foot. She is able to dorsi and plantarflex the left foot. No crepitus or deformity. Able to wiggle all digits of the left foot. Sensation intact. NEURO: No focal deficits. Alert and oriented x3. PSYCH: Normal mood and affect. Course Course Emergency Course: This is a 33-year-old female who presented for evaluation of left foot / ankle pain. X-ray negative for fracture. Exam is consistent with sprain. Provided with Sarwat wrap. Recommended she purchase an [id number] velcro ankle stirrup splint. She should follow up with primary provider and go to the ER for worsening symptoms. Pt in agreement with plan of care. Level of Care: Express Care Visit Vital Signs Vital signs: Vital Signs Temperature 36.8
== END 2023-10-02 14:10 | disposition home or self-care (01) ==
PROVIDERS: Emergency Provider Nurse Practitioner
DX: S93.402A Sprain of unspecified ligament of left ankle, initial encounter (principal); W22.8XXA Striking against or struck by other objects, initial encounter; Z87.891 Personal history of nicotine dependence
CPT/HCPCS: 73610; 73630; 99213; G0463

== ENCOUNTER 2023-11-27 12:53 | Emergency (ER) | payer OTHER, SELFPAY ==
[2023-11-27 13:26] VITALS: BP 106/63; PULSE 64; RESP 16; TEMP 36.9; O2SAT 100
--- NOTE | 2023-11-27 15:23 | ED.GENADULT ---
HPI - General Adult General Chief complaint: Urogenital-Female Stated complaint: UTI Source: patient Mode of arrival: ambulatory Limitations: no limitations History of Present Illness HPI narrative: patient presents for evaluation of left lower back pain. Symptom onset 2-3 days ago. She states the pain feels like menstrual cramps . She rates her pain 5/10 in severity. Pain now radiates circumferentially into the left side of her abdomen. She feels a pulling sensation in her vaginal area reports vaginal bleeding. She indicates she has a Nexplanon and typically does not have periods since having it inserted. She is not sure when she had the Nexplanon inserted. She experienced some clear vaginal discharge a few days prior to her vaginal bleeding. She is sexually active with a new male partner. He is asymptomatic. She thinks she has a UTI. She has urinary frequency, incontinence, hesitancy, incomplete emptying. She denies dysuria or hematuria. She denies fever, chills, nausea, vomiting. She states she went to the ER back in July and was told that she had fibroids and UTI. She states some of her symptoms are consistent with her symptoms back then. Related Data Home Medications Medication Instructions Recorded Confirmed No Home Medications 10/02/23 11/27/23 Allergies Allergy/AdvReac Type Severity Reaction Status Date / Time No Known Allergies Allergy Unknown Verified 11/27/23 13:35 Review of Systems Review of Systems: CONSTITUTIONAL: Denies fever, chills, or sweats. EYES: Denies visual changes, redness, or discharge. ENT: Denies rhinorrhea, congestion, sore throat, or otalgia. CARDIOVASCULAR: Denies chest pain, palpitations, or edema. RESPIRATORY: Denies cough or dyspnea. GASTROINTESTINAL: reports left-sided pelvic pain. Denies nausea, vomiting, or diarrhea. GENITOURINARY: reports urinary urgency, frequency, hesitancy, incomplete emptying and a pulling sensation in her vagina. Reports recent vaginal discharge. Reports current vaginal bleeding. SKIN: Denies rash or itching. MUSCULOSKELETAL: Reports left lower back pain. Denies joint pain, or myalgia. NEUROLOGIC: Denies headache, numbness, dizziness, or weakness. PSYCHIATRIC: Denies anxiety or depression. [facility] Past Medical History Medical History Anxiety Depression Fibroids Surgical History Surgical History No pertinent past surgical history Family History Family History Father Ankylosing spondylitis Mother Asthma Social History Social History Smoking packs per day: 0.5 Smoking cigarettes per day: 10.0 Years smoked: 4 Smoking pack-years: 2.00 Smoking status: Former smoker Tobacco type: cigarettes Smoking end date: 10/24/15 Alcohol intake: never Substance use: never Substance use type: does not use Living arrangements: with family Additional living arrangements comments: CHILDREN Gender identity (if verbalized by the patient): Female Spiritual care concerns: No Exam Narrative: GENERAL: Well-appearing, well-nourished, and in no acute distress. HEAD: Normocephalic, atraumatic. EYES: PERRLA and EOMI. ENT: Nares clear, no rhinorrhea or epistaxis. Mucous membranes moist. Oropharynx without tonsillar hypertrophy exudate or other lesions. Bilateral TMs pearly gilman nonbulging NECK: Supple. No adenopathy or masses. No carotid bruits or JVD CHEST: Clear to auscultation. No respiratory distress. No wheezes rales or rhonchi HEART: Regular rate and rhythm. No murmur heard. Normal peripheral pulses. ABDOMEN: Soft, nondistended, normal active bowel sounds. Tenderness present in LLQ. EXTREMITIES: Normal range of motion. No edema. SKIN: Warm, dry, no rash. NEURO: N
== END 2023-11-27 15:25 | disposition short-term general hospital (02) ==
PROVIDERS: Emergency Provider Nurse Practitioner
DX: R10.2 Pelvic and perineal pain (principal); N93.9 Abnormal uterine and vaginal bleeding, unspecified; Z87.891 Personal history of nicotine dependence
CPT/HCPCS: 81003; 81025; 99212; G0463

== ENCOUNTER 2024-02-21 18:30 | Emergency (ER) | payer OTHER, SELFPAY ==
[2024-02-21 18:35] VITALS: BP 136/73; PULSE 84; RESP 16; TEMP 36.9; O2SAT 100
--- NOTE | 2024-02-21 19:05 | ED.URI ---
HPI - URI/Sore Throat General Chief Complaint: Upper Respiratory Infection Stated Complaint: Sinus Time Seen by Provider: 02/21/24 19:02 Source: patient and RN notes reviewed Mode of arrival: ambulatory Limitations: no limitations History of Present Illness HPI Narrative: 33-year-old female presents with concern for productive cough, nasal congestion, drainage, sore throat, general malaise, itchy eyes. She reports body aches, headache, fatigue. She reports taking multiple [id number] medications without relief. MD elicited complaint: cough and sore throat Related Data Allergies Allergy/AdvReac Type Severity Reaction Status Date / Time No Known Allergies Allergy Unknown Verified 02/21/24 19:13 Review of Systems Review of Systems: CONSTITUTIONAL: Reports malaise, fatigue. Denies chills, sweats, or fever. EYES: Denies visual changes, redness, or discharge. ENT: Reports rhinorrhea, congestion, sinus pain, otalgia and sore throat. CARDIOVASCULAR: Denies chest pain, palpitations, or edema. RESPIRATORY: Reports productive cough. Denies dyspnea. GASTROINTESTINAL: Denies abdominal pain, nausea, vomiting, diarrhea SKIN: Denies rash or itching. MUSCULOSKELETAL: Reports myalgia. NEUROLOGIC: Reports headache. All systems reviewed & are unremarkable except as noted in HPI and below PMFSH Past Medical History Medical History Anxiety Depression Fibroids Surgical History Surgical History No pertinent past surgical history Family History Family History Father Ankylosing spondylitis Mother Asthma Social History Social History Smoking packs per day: 0.5 Smoking cigarettes per day: 10.0 Years smoked: 4 Smoking pack-years: 2.00 Smoking status: Former smoker Tobacco type: cigarettes Smoking end date: 10/24/15 Alcohol intake: never Substance use: never Substance use type: does not use Living arrangements: with family Additional living arrangements comments: CHILDREN Gender identity (if verbalized by the patient): Female Spiritual care concerns: No Comments At time of signature, agree with nursing past medical, surgical, social and family history. There is no relevant family history pertinent to the presenting complaint Exam Narrative: GENERAL: Well-appearing, well-nourished, and in no acute distress. HEAD: Normocephalic EYES: PERRLA, conjunctivae clear ENT: Nares clear, turbinates edematous and erythematous. Mucous membranes moist. TM pearly gilman with dull light reflex bilaterally; no tragal tenderness. Oropharynx not erythematous without lesions. Tonsils not enlarged and without exudate, no drooling, no hoarseness, no trismus, uvula midline. NECK: Supple. No lymphadenopathy CHEST: Clear to auscultation, breath sounds equal. No wheezing, rhonchi, rales, or stridor. No respiratory distress, speaks in full sentences. HEART: Regular rate and rhythm. No murmur heard. SKIN: Warm, dry, no rash. NEURO: Alert and oriented x3. PSYCH: Normal mood and affect Course Course Emergency Course: Patient is aware of diagnosis, understands and agrees to treatment plan. Anticipatory guidance given. Patient agrees to follow-up as directed and is aware of reasons to seek care at the emergency department. Portions of this record may have been created with voice recognition software Level of Care: Express Care Visit Vital Signs Vital signs: Vital Signs Temperature 98.5 F 02/21/24 18:35 Pulse Rate 84 02/21/24 18:35 Respiratory Rate 16 02/21/24 18:35 Blood Pressure 136/73 02/21/24 18:35 Pulse Oximetry 100 02/21/24 18:35 Oxygen Delivery Room Air 02/21/24 18:35 Temperature 98.5 F 02/21/24 18:35 Pulse Rate 84 02/21/24 18:35 Resp
== END 2024-02-21 19:15 | disposition home or self-care (01) ==
PROVIDERS: Emergency Provider Nurse Practitioner
DX: J01.90 Acute sinusitis, unspecified (principal); Z87.891 Personal history of nicotine dependence
CPT/HCPCS: 87880; 99213; G0463

== ENCOUNTER 2024-07-01 15:03 | Emergency (ER) | payer OTHER, SELFPAY ==
--- NOTE | ~2024-07-01 | XR_ITS ---
XR elbow RT min 3V DATE: 07/01/2024 15:48 INDICATION: Posterior elbow pain after hitting it on door frame TECHNIQUE: 4 views COMPARISON: None FINDINGS: No fracture or dislocation or joint effusion. Mild spurring of the coronoid process. IMPRESSION: No fracture or dislocation or joint effusion Reviewed, dictated and finalized at location A.
[2024-07-01 15:17] VITALS: BP 137/95; PULSE 117; RESP 16; TEMP 37; O2SAT 99
--- NOTE | 2024-07-01 15:24 | ED.UPPEXIN ---
HPI - Extremity Injury (Upper) General Chief Complaint: Extremity Injury, Upper Stated Complaint: right elbow injury Time Seen by Provider: 07/01/24 15:24 Source: patient, RN notes reviewed and old records reviewed Mode of arrival: ambulatory Limitations: no limitations History of Present Illness HPI narrative: 33-year-old female presents to the [facility] after jumping of a vehicle, hitting her elbow on the way down, bruising noted to the bottom portion the elbow the proximal radial, decreased range of motion, mild swelling noted. Distal injury positive radial pulse. 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 Capillary refill under 2 seconds Onset (ago): hour(s) (2) Treatments prior to arrival: NSAIDS Related Data Home Medications Medication Instructions Recorded Confirmed buspirone 15 mg tablet 15 mg PO DAILY 07/01/24 07/01/24 risperidone 1 mg tablet 1 mg PO DAILY 07/01/24 07/01/24 Allergies Allergy/AdvReac Type Severity Reaction Status Date / Time No Known Allergies Allergy Unknown Verified 07/01/24 15:19 Review of Systems Review of Systems: All systems reviewed & are unremarkable except as noted in HPI and below Constitutional: Constitutional: Reports no additional constitutional complaints Eyes: Eyes: Reports no additional eye complaints ENT: Reports system reviewed and no additional complaints, except as documented Cardiovascular: Cardiovascular: Reports no additional cardiovascular complaints, Denies chest pain and Denies dyspnea Respiratory: Respiratory: Reports no additional respiratory complaints, Denies chest congestion, Denies cough and Denies dyspnea Gastrointestinal: Gastrointestinal: Reports no additional gastrointestinal complaints, Denies abdominal pain, Denies nausea and Denies vomiting Musculoskeletal: Musculoskeletal: Reports as per HPI, Reports arthralgias and Reports joint swelling Integumentary/Breasts: Skin/Breast: Reports system reviewed and no additional complaints, except as docu Neurologic: Reports system reviewed and no additional complaints, except as documented Psychiatric: Psychiatric: Reports no additional psychiatric complaints Allergic/Immunologic: Allergic/Immunologic: Reports no additional allergic/immunologic complaints PMFSH Past Medical History Medical History Anxiety Depression Fibroids Surgical History Surgical History No pertinent past surgical history Family History Family History Father Ankylosing spondylitis Mother Asthma Social History Social History Smoking packs per day: 0.5 Smoking cigarettes per day: 10.0 Years smoked: 4 Smoking pack-years: 2.00 Smoking status: Former smoker Tobacco type: cigarettes Smoking end date: 10/24/15 Alcohol intake: never Substance use: never Substance use type: does not use Living arrangements: with family Additional living arrangements comments: CHILDREN Gender identity (if verbalized by the patient): Female Spiritual care concerns: No Comments At the time of my signature, I reviewed and agree with the nursing past medical, surgical, social, and family history. There is no relevant family history pertinent to the patient complaint. Exam Const: General: cooperative, healthy appearing, comfortable, no acute distress, well developed, alert and well nourished Nutritional Appearance: well nourished Orientation/consciousness: patient oriented x3 Limitations: no limitations HENMT: Head: normal to inspection Ears: hearing grossly normal bilaterally and external ears normal Face/Nose/Sinus: Normal external nose present, Normal nares present, Normal nasal mucous membranes and turbinates present, normal facial exam and face symmetric Face and sinus: normal facial exam and face symmetric Eyes: Genera
== END 2024-07-01 16:59 | disposition home or self-care (01) ==
PROVIDERS: Emergency Provider Nurse Practitioner
DX: S50.01XA Contusion of right elbow, initial encounter (principal); W17.89XA Other fall from one level to another, initial encounter; F41.9 Anxiety disorder, unspecified; F32.A Depression, unspecified; Z87.891 Personal history of nicotine dependence
CPT/HCPCS: 73080; 99213; G0463

== ENCOUNTER 2025-08-19 10:16 | Observation (INO) | payer OTHER, SELFPAY ==
--- NOTE | ~2025-08-19 | US_ITS ---
EXAMINATION: US OB limited DATE: 08/19/2025 12:19 INDICATION: Pelvic pain. Back pressure. TECHNIQUE: Real-time transabdominal obstetric ultrasound. FINDINGS: There is a single living fetus in vertex presentation. The placenta is posterior without placenta previa. Cervical length measures 3.4 cm. Cervix appears closed. cardiac activity and movement is noted with a heart rate of 147 beats per minute. Presentation vertex. Gestational age of 24 weeks and 2 days based on previous dating. IMPRESSION: 1. Single living fetus in presentation with an estimated gestational age of 24 weeks 2 days based on previous the 2. Cervical length measures 3.4 cm. If symptoms persist or worsen, consider a short-term follow-up study or additional imaging for further assessment. Reviewed, dictated and finalized at location Q. IMPRESSION: 1. Single living fetus in presentation with an estimated gestational age of 2 4 weeks 2 days based on previous the 2. Cervical length measures 3.4 cm. If symptoms persist or worsen, consider a short-term follow-up study or additio nal imaging for further assessment.
--- NOTE | 2025-08-19 10:16 | OBADM ---
This patient, Leslee Aquino, admitted to the OB room OB Post 116 for observation. Patient/family oriented to hospital policies and general routines including ID bracelet, bed and alarms, visiting hours, pain management, procedures, bathroom and other care routines, personal items, smoking policy, room service/diet, and visiting hours. Patient/Family are encouraged to report perceived risks to care and to ask questions if they do not understand what they are told or what they should do.
[2025-08-19 10:30] VITALS: BP 106/73; PULSE 82
--- NOTE | 2025-08-19 10:40 | PC.NURSE ---
pt has complaints of back pain that has been going on for several weeks but is worse today. Pt says she tried the muscle relaxers that Dr. Kellee Harrell prescribed with no relief. Pt also states she thinks shes been leaking for the last 2 days.
[2025-08-19 11:10] VITALS: BMI 28.6
[2025-08-19 11:13] LABS: Add Urine Microscopic? YES; Appearance Urine Cloudy (Clear); Glucose Urine UA Negative (Negative); Leukocyte Esterase Ur Trace LEU/UL (Negative); Nitrate Urine Negative (Negative); Non Pathogenic Casts 0-2; Specific Grav Ur 1.018 (1.001-1.035)
[2025-08-19 11:19] LABS: OBXCEM ROM Plus Negative (Negative)
--- OUTSIDE RECORDS SUMMARY | 2025-08-19 11:44 | XMS_ITS | Patient Health Record ---
Author Organization [facility] [employer] Address [address] [place] [address] Care Team Providers [employer] Instructor Name Role Phone Rudy Hadley Unavailable [phone] Reason For Referral No Information Medications Medication SIG (Take, Route, Frequency, Duration) Notes Start Date End Date Status Hypercare 20 % SOLUTION, NON-ORAL TOPICAL *Pick strength-form from [employer] for eRX* Active Fluconazole 150 MG Tablet Oral Active lamoTRIgine 25 MG Tablet Oral Active Citalopram Hydrobromide 40 MG Tablet Oral Active Ibuprofen 600 MG Tablet Oral Active metroNIDAZOLE 0.75 % Gel Vaginal Active Latuda 20 MG Tablet Oral Active Amethia 0.15 mg-30 mcg (84)/10 mcg (7) Tablet Oral *Pick strength-form from [employer] for eRX* Active Ondansetron HCl 4 MG Tablet Oral Active Viibryd 20 MG Tablet Oral Active SEROquel XR 50 MG Tablet Extended Release 24 Hour Oral Active Vraylar 4.5 mg Capsule Oral Active lamoTRIgine 100 MG Tablet Oral Active HYDROcodone-Acetaminop hen 5-325 MG Tablet Oral Active SEROquel XR 150 MG Tablet Extended Release 24 Hour Oral Active SEROquel XR 400 MG Tablet Extended Release 24 Hour Oral Active Cefuroxime Axetil 250 MG Tablet Oral Active Vraylar 1.5 & 3 MG Capsule Therapy Pack Oral Active FLUoxetine HCl 40 MG Capsule Oral Active ALPRAZolam 0.25 MG Tablet Oral Active SEROquel XR 300 MG Tablet Extended Release 24 Hour Oral Active FLUoxetine HCl 20 MG Tablet Oral Active Azithromycin 250 MG Tablet Oral Active Vilazodone HCl 10 MG Tablet Oral Active Plan Of Treatment No Information
[2025-08-19 11:55] VITALS: TEMP 37.1
--- NOTE | 2025-08-19 12:33 | PC.NURSE ---
Dr. Kellee Harrell okay with pt going home. Wants to have pt follow up this week in the office. Pt to see him in the office today 1500 for appt.
--- NOTE | 2025-08-21 06:13 | P.PNOB_ITS ---
OB - Triage/Final Diagnosis Visit Information Reason for evaluation: threatened labor Comments/Additional reasons for admission: I have assessed the risk for this patient, Leslee Aquino, and determined that she would benefit from observation care. Evaluation Laboratory results: Laboratory Tests 08/19/25 08/19/25 10:50 11:18 Urine Color Yellow Urine Appearance Cloudy H Urine pH 6.5 Ur Specific [place] 1.018 Urine Protein Negative Urine Glucose (UA) Negative Urine Ketones Negative Ur Blood (Man) Negative Urine Nitrate Negative Urine Bilirubin Negative Urine Urobilinogen 1.0 Ur Leukocyte Esterase Trace H Urine RBC 0-2 Urine WBC 0-5 Ur Squamous Epith Cells Moderate Urine Bacteria 1+ H Urine Casts 0-2 Membranes Rupture Rom plus negative
== END 2025-08-19 12:41 | disposition home or self-care (01) ==
PROVIDERS: Admitting Provider Obstetrics & Gynecology; Visit Provider Obstetrics & Gynecology
DX: O47.02 False labor before 37 completed weeks of gestation, second trimester (principal); Z3A.24 24 weeks gestation of pregnancy
CPT/HCPCS: 76815; 81001; 84112; G0378; G0379